=== PATIENT | female | born 2000 | race Caucasian/White ===

== ENCOUNTER 2024-08-28 19:20 | Emergency (ER) | payer OTHER, SELFPAY ==
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
[2024-08-28] MEDS: TYLENOL 650 MG PO (21:15)
[2024-08-28] MEDS: PERCOCET 5/325 1 TABLET PO (22:22)
[2024-08-28 22:36] LABS: HCG, Serum Qualitative Screen Negative
[2024-08-28 22:42] LABS: Blood Urea Nitrogen 8 mg/dl (7-17); Calcium 8.9 mg/dl (8.4-10.2); Carbon Dioxide 24 mmol/L (22-30); Chloride 104 mmol/L (98-107); Glucose 94 mg/dl (70-99); Sodium 140 mmol/L (135-145); eGFR > 60.00
[2024-08-28 22:52] LABS: % Basophils 1.1 % (0-2); % Eosinophils 33.9 % (0-6); % Immature Granulocytes 0.1 % (0-0.5); % Lymphocytes 33.2 % (20.5-51.1); % Monocytes 5.9 % (1.7-9.3); % Neutrophils 24.5 % (42.2-75.2); Absolute Basophils 0.1 10^3/uL (0-0.2); Absolute Eosinophils 2.8 10^3/uL (0-0.7); Absolute Lymphocytes 2.7 10^3/uL (1.2-3.4); Absolute Monocytes 0.5 10^3/uL (0.1-0.6); Hematocrit 33.5 % (37.0-47.0); Hemoglobin 12.2 g/dL (12.0-16.0); Mean Corp Hgb Conc. 36.2 g/dL (33.0-37.0); Mean Corpuscular Hgb 28.2 pg (27.0-31.0); Mean Corpuscular Volume 77.9 fL (81.0-99.0); Nucleated Red Blood Cells % 0 %; Platelet Count 28 10^3/uL (130-400); Red Blood Cell Count 4.29 10^6/uL (4.20-5.40); Red Cell Dist. Width 12.9 % (11.5-14.5)
[2024-08-28 23:51] LABS: Hematocrit 31.9 % (37.0-47.0); Hemoglobin 11.6 g/dL (12.0-16.0); Mean Corp Hgb Conc. 36.4 g/dL (33.0-37.0); Mean Corpuscular Hgb 28.4 pg (27.0-31.0); Mean Corpuscular Volume 78.2 fL (81.0-99.0); Mean Platelet Volume 9.2 fL (7.4-10.4); Platelet Count 243 10^3/uL (130-400); Red Blood Cell Count 4.08 10^6/uL (4.20-5.40); Red Cell Dist. Width 13.1 % (11.5-14.5); White Blood Cell Count 9.6 10^3/uL (4.8-10.8)
[2024-08-29 00:11] LABS: % Basophils 0.8 % (0-2); % Eosinophils 37.4 % (0-6); % Immature Granulocytes 0.2 % (0-0.5); % Lymphocytes 28.6 % (20.5-51.1); % Monocytes 6.5 % (1.7-9.3); % Neutrophils 26.5 % (42.2-75.2); Absolute Basophils 0.1 10^3/uL (0-0.2); Absolute Eosinophils 3.6 10^3/uL (0-0.7); Absolute Lymphocytes 2.7 10^3/uL (1.2-3.4); Absolute Monocytes 0.6 10^3/uL (0.1-0.6); Absolute Neutrophils 2.5 10^3/uL (1.4-6.5); Nucleated Red Blood Cells % 0 %
== END 2024-08-29 00:19 | disposition home or self-care (01) ==
LOC: EMR 19:20
PROVIDERS: Physician Assistant; EMERGENCY PHYSICIAN Emergency Medicine; FAMILY PHYSICIAN Internal Medicine
DX: S00.81XA Abrasion of other part of head, initial encounter (principal); S40.022A Contusion of left upper arm, initial encounter; S40.021A Contusion of right upper arm, initial encounter; S80.12XA Contusion of left lower leg, initial encounter; S80.11XA Contusion of right lower leg, initial encounter; V49.50XA Passenger injured in collision with unspecified motor vehicles in traffic accident, initial encounter; J45.909 Unspecified asthma, uncomplicated; F17.290 Nicotine dependence, other tobacco product, uncomplicated
CPT/HCPCS: 99284; 70450; 71046; 72125; 74177; 80048; 84703; 85025; Q9967

== ENCOUNTER 2024-10-03 08:39 | Emergency (ER) | payer OTHER, SELFPAY ==
--- NOTE | 2024-10-03 08:56 | ED.GENMED ---
ED Provider Triage
<Denisse Torres PA-C - Last Filed: 10/03/24 16:33>
-
Patient seen by provider in Triage?: Seen in Triage
Attestation: A medical screening examination has been initiated by a qualified medical provider. Based on the assessment performed at this time, it has been determined that an emergent medical condition may exist and the patient has been informed
that further medical evaluation and possible additional diagnostic testing may be needed.
HPI: 24yoF here with vomiting x 2 days. Unable to tolerate PO intake. Started with generalized abd pain yesterday and diarrhea today. On medical marijuana.
GENERAL: Alert , in no apparent distress
EYE: No visual abnormalities.
NECK: Trachea midline
ENT: No visible abnormalities.
LUNGS: No acute respiratory distress
NEUROLOGICAL: Alert and oriented
SKIN: Skin intact. No visible changes.
MUSCULOSKELETAL: Moving extremities normally
PSYCH: Normal and appropriate interaction.
This is a medical evaluation conducted in person to initiate diagnostic evaluation and provide initial therapeutics. Please see further documentation by the treating clinician.
Abdominal labs, magnesium, and HCG ordered. ODT Zofran ordered for nausea.
History of Present Illness
<Denisse Torres PA-C - Last Filed: 10/03/24 16:33>
General
Chief Complaint: Abdominal Symptoms
Time Seen by Provider: 10/03/24 10:32
<Tish Langley PA-C - Last Filed: 10/03/24 17:38>
General
Source: patient
Exam Limitations: none
Nursing documentation reviewed up to this point in time: agreed with
History of Present Illness
History of Present Illness:
24-year-old female with past medical history of daily marijuana use, anxiety, depression presents to the emergency department today with concerns of diffuse abdominal pain starting today and nausea and vomiting for the past few days. Patient also
notes 1 diarrhea episode as well. Patient reports that the pain is constant and does not get worse after meals or with movement. Patient has never had pain like this before. Patient denies any history of intra-abdominal surgeries. Patient states
that she also has burning with urination but denies pelvic pain. She denies hematuria. She denies flank pain. She states that the belly pain radiates into her chest as well. Patient denies NSAID use. Patient states that she takes Valium 5 mg
daily for her anxiety. Patient states that she not take it this morning because of the vomiting. Patient believes that this will improve her symptoms.
Past History
<Denisse oTrres PA-C - Last Filed: 10/03/24 16:33>
Past History
ED Past Medical History: Asthma (Uses Asthmanex) and Psychiatric (Anxiety Takes Remeron, Abilify, Valium, Gabapentin. Followed by her Psychiatrist.)
ED Past Surgical History: None
Social History
Tobacco: Vaping
Alcohol: None
Drug: Marijuana
Personal:
Living: with family
Employment: Not employed
Review of Systems
<Tish Langley PA-C - Last Filed: 10/03/24 17:38>
Review of Systems
All Other Systems: ROS reviewed and negative except as documented in HPI and ROS
Phy Exam
<Tish Langley PA-C - Last Filed: 10/03/24 17:38>
Physical Exam
Physical Exam:
General: Patient is well appearing and in no acute distress; non-toxic
Skin: Warm and dry, no rashes or lesions
Head: Normocephalic, atraumatic
Eyes: Sclera non-icteric. EOMs intact. PERRLA.
Cardiac: Regular rate and rhythm, no murmurs
Peripheral Vascular: No lower extremity swelling or edema
Pulm: Normal respiratory effort, no wheezes, rales, or rhonchi
Abdomen: Epigastric abdominal tenderness to palpation noted
Neuro: CN II-XII intact, no focal neurologic deficits.
Psychiatric: Appropriate mood and affect.
Course
<Denisse Torres PA-C - Last Filed: 10/03/24 16:33>
Orders/Labs/Results
Orders:
Orders
10/03/24 08:59
Ondansetron Orally Disint [Zofran Odt (Orally Disintegrating)] 4 mg PO NOW STA
Test Result ONCE
10/03/24 09:01
Electrocardiogram (*1) Urgent
Reason for Study: Shortness of Breath
EKG- Treatment ONCE
10/03/24 09:10
Complete Blood Count/With Diff Urgent
Comprehensive Metabolic Panel Urgent
HCG, Serum Qualitative Screen Urgent
Lipase Urgent
Magnesium Urgent
10/03/24 10:59
0.9% Sodium Chloride 500 ml [Nss] 500 ml IV BOLUS
Diazepam [Valium] 5 mg PO NOW STA
10/03/24 11:07
Ketorolac [Toradol] 15 mg IV NOW STA
10/03/24 11:47
diazePAM [Valium Injection] 5 mg IV NOW STA
10/03/24 12:04
Haloperidol Lactate [Haldol] 3 mg IM NOW STA
10/03/24 12:36
Urinalysis Reflex To Culture Urgent
Date Specimen was Collected: 10/03/24
Time Specimen was Collected: 12:33
Urine Microscopic Reflex Cult Urgent
Urine Culture Urgent
ALEKSANDRA Source: U
Specimen Description:
Obtained by: Random
Date Specimen was Collected: 10/03/24
Time Specimen was Collected: 12:33
Abnormal Lab Results
10/03/24 10/03/24
09:10 12:36
Glucose 104 H mg/dl
(70-99)
Urine Ketones 3+ A
(Negative)
Urine Nitrite (Reflex) Positive A
(Negative)
Leukocyte Esterase Rfl 2+ A
(Negative)
Urine WBC (Reflex) 26-30 A /HPF
(0-5)
Urine Bacteria (Reflex) Many A
(Negative)
10/03/24 09:10
10/03/24 09:10
Vital Signs
Initial and Last Documented VS:
Initial Vital Signs
Temp Pulse Resp BP Pulse Ox
98.4 F 57 16 135/95 99
10/03/24 08:57 10/03/24 08:57 10/03/24 08:57 10/03/24 08:57 10/03/24 08:57
Last Documented Vital Signs
Temp Pulse Resp BP Pulse Ox
98.4 F 60 18 120/75 99
10/03/24 08:57 10/03/24 14:05 10/03/24 14:05 10/03/24 14:05 10/03/24 14:05
Joselt;Tish Langley PA-C - Last Filed: 10/03/24 17:38>
Orders/Labs/Results
Orders:
Orders
10/03/24 08:59
Ondansetron Orally Disint [Zofran Odt (Orally Disintegrating)] 4 mg PO NOW STA
Test Result ONCE
10/03/24 09:01
Electrocardiogram (*1) Urgent
Reason for Study: Shortness of Breath
EKG- Treatment ONCE
10/03/24 09:10
Complete Blood Count/With Diff Urgent
Comprehensive Metabolic Panel Urgent
HCG, Serum Qualitative Screen Urgent
Lipase Urgent
Magnesium Urgent
10/03/24 10:59
0.9% Sodium Chloride 500 ml [Nss] 500 ml IV BOLUS
Diazepam [Valium] 5 mg PO NOW STA
10/03/24 11:07
Ketorolac [Toradol] 15 mg IV NOW STA
10/03/24 11:47
diazePAM [Valium Injection] 5 mg IV NOW STA
10/03/24 12:04
Haloperidol Lactate [Haldol] 3 mg IM NOW STA
10/03/24 12:36
Urinalysis Reflex To Culture Urgent
Date Specimen was Collected: 10/03/24
Time Specimen was Collected: 12:33
Urine Microscopic Reflex Cult Urgent
Urine Culture Urgent
ALEKSANDRA Source: U
Specimen Description:
Obtained by: Random
Date Specimen was Collected: 10/03/24
Time Specimen was Collected: 12:33
Abnormal Lab Results
10/03/24 10/03/24
09:10 12:36
Glucose 104 H mg/dl
(70-99)
Urine Ketones 3+ A
(Negative)
Urine Nitrite (Reflex) Positive A
(Negative)
Leukocyte Esterase Rfl 2+ A
(Negative)
Urine WBC (Reflex) 26-30 A /HPF
(0-5)
Urine Bacteria (Reflex) Many A
(Negative)
10/03/24 09:10
10/03/24 09:10
Vital Signs
Initial and Last Documented VS:
Initial Vital Signs
Temp Pulse Resp BP Pulse Ox
98.4 F 57 16 135/95 99
10/03/24 08:57 10/03/24 08:57 10/03/24 08:57 10/03/24 08:57 10/03/24 08:57
Last Documented Vital Signs
Temp Pulse Resp BP Pulse Ox
98.4 F 60 18 120/75 99
10/03/24 08:57 10/03/24 14:05 10/03/24 14:05 10/03/24 14:05 10/03/24 14:05
<Rubens Perez, DO - Last Filed: 10/03/24 12:02>
Orders/Labs/Results
Orders:
Orders
10/03/24 08:59
Ondansetron Orally Disint [Zofran Odt (Orally Disintegrating)] 4 mg PO NOW STA
Test Result ONCE
10/03/24 09:01
Electrocardiogram (*1) Urgent
Reason for Study: Shortness of Breath
EKG- Treatment ONCE
10/03/24 09:10
Complete Blood Count/With Diff Urgent
Comprehensive Metabolic Panel Urgent
HCG, Serum Qualitative Screen Urgent
Lipase Urgent
Magnesium Urgent
10/03/24 10:59
0.9% Sodium Chloride 500 ml [Nss] 500 ml IV BOLUS
Diazepam [Valium] 5 mg PO NOW STA
10/03/24 11:07
Ketorolac [Toradol] 15 mg IV NOW STA
10/03/24 11:47
diazePAM [Valium Injection] 5 mg IV NOW STA
10/03/24 12:04
Haloperidol Lactate [Haldol] 3 mg IM NOW STA
10/03/24 12:36
Urinalysis Reflex To Culture Urgent
Date Specimen was Collected: 10/03/24
Time Specimen was Collected: 12:33
Urine Microscopic Reflex Cult Urgent
Urine Culture Urgent
ALEKSANDRA Source: U
Specimen Description:
Obtained by: Random
Date Specimen was Collected: 10/03/24
Time Specimen was Collected: 12:33
Abnormal Lab Results
10/03/24 10/03/24
09:10 12:36
Glucose 104 H mg/dl
(70-99)
Urine Ketones 3+ A
(Negative)
Urine Nitrite (Reflex) Positive A
(Negative)
Leukocyte Esterase Rfl 2+ A
(Negative)
Urine WBC (Reflex) 26-30 A /HPF
(0-5)
Urine Bacteria (Reflex) Many A
(Negative)
10/03/24 09:10
10/03/24 09:10
Vital Signs
Initial and Last Documented VS:
Initial Vital Signs
Temp Pulse Resp BP Pulse Ox
98.4 F 57 16 135/95 99
10/03/24 08:57 10/03/24 08:57 10/03/24 08:57 10/03/24 08:57 10/03/24 08:57
Last Documented Vital Signs
Temp Pulse Resp BP Pulse Ox
98.4 F 60 18 120/75 99
10/03/24 08:57 10/03/24 14:05 10/03/24 14:05 10/03/24 14:05 10/03/24 14:05
<Tish Langley PA-C - Last Filed: 10/03/24 17:38>
MDM/Problems Addressed
Differential Diagnosis Includes:
ddx include cannabinoid hyperemesis syndrome, gastritis, gastroenteritis, benzodiazepine withdrawal
MDM/Problems Addressed:
Assessment: cannabinoid hyperemesis syndrome vs gastritis with concurrent UTI
24-year-old female with past medical history of daily marijuana use, anxiety, depression presents to the emergency department today with concerns of diffuse abdominal pain starting today and nausea and vomiting for the past few days. Patient also
notes 1 diarrhea episode as well. She has had no recent antibiotics. On exam, patient is dry heaving but is afebrile has mild non focalabdominal tenderness to palpation. Considering patient has a soft abdomen, has no leukocytosis, no fever, CT
imaging not warranted at this time. Patient's pain did significantly improved with Toradol, upon discharge patient was pain free and feeling well. Patient's nausea and vomiting resolved with zofran, Haldol. Patient did note mild dysuria, urinalysis
demonstrates nitrates and leukocyte esterase as well as bacteria and wbcs. Will treat with keflex.
Patient also noted that the abdominal pain briefly traveled into the chest. EKG obtained which shows no ischemic changes but did show bradycardia rate 48, on reexamination and monitoring patient's heart rate normalized. Return precautions
discussed. Case reviewed with my attending.
Chronic conditions affecting care:
asthma, ADHD, anxiety on valium
<Tish Langley PA-C - Last Filed: 10/03/24 17:38>
*Pulse Oximetry
Patient hypoxic: no
*EKG
Interpreted by ED Provider?: Yes
EKG Intrepretation Date: 10/03/24
Interpretation: abnormal
Comparison EKG: changes noted
Heart Rate: 48
Rate: bradycardiac
Rhythm: sinus
Ischemia: no ischemia
*Critical Care Note
Total Time (30-74mins, 75-104mins- exclusive of procedures): Not Applicable
<Tish Langley PA-C - Last Filed: 10/03/24 17:38>
Update Note
Update Note:
11:48 am-- Patient vomited immediately after taking PO valium, will give IV
ED Attending Note
<Denisse Torres PA-C - Last Filed: 10/03/24 16:33>
-
Portions of this chart may have been created with voice recognition software.� Occasional wrong word or��sound alike� substitutions may have occurred due to the inherent limitations of voice recognition software.
<Rubens Perez DO - Last Filed: 10/03/24 12:02>
ED Attending Note
Patient seen and examined by attending physician: Yes
I performed the substantive portion of visit, reviewed & personally made and approve the management plan that is documented in note by myself or ROMEL.: Yes
ED Attending Note:
Seen with PA examined independently 24-year-old female chronic Valium use due to anxiety chronic marijuana use presents with abdominal cramping nausea vomiting little to diarrhea, here she appears anxious and uncomfortable her abdomen is soft
without guarding or rebound labs are noted will treat symptomatically, serial abdominal exams
Discharge Plan
Departure
Patient Disposition: Home (Routine Discharge)
Date of Disposition: 10/03/24
Time of Disposition: 13:57
Patient with high blood pressure during this ER visit?: Yes
Condition: Good
Discharge Problem:
Nausea & vomiting, Urinary tract infection
Instructions: Nausea and Vomiting, Adult (DC), Urinary Tract Infection, Adult ED
Prescriptions:
New
cephalexin 500 mg capsule
500 mg PO BID 7 Days Qty: 14 0RF
ondansetron HCl 4 mg tablet
4 mg PO Q6H PRN (Reason: nausea and vomiting) Qty: 8 0RF
No Action
albuterol sulfate 2.5 MG/3 ML solution for nebulization
2.5 mg inhalation R Q4HPRN PRN (Reason: sob/wheezing)
sertraline 100 MG tablet
100 mg PO DAILY
levonorgestrel-ethinyl estrad [Altavera (28)] 1 EACH tablet
1 ea PO DAILY@1800
gabapentin 300 MG capsule
300 mg PO BID
fluticasone propionate 1 SPRAY spray,suspension
1 spray intranasal DAILY
prednisone 10 MG tablet
10 mg PO .TAPER Qty: 30 0RF
Rx Instructions:
Take 40mg daily x3days, 30mg daily x3days,
20mg daily x3days, 10mg daily x3days.
ondansetron 4 MG tablet,disintegrating
4 mg PO TIDPRN PRN (Reason: nausea) Qty: 10 0RF
gabapentin 400 MG capsule
400 mg PO TID Qty: 90 6RF
ondansetron 4 MG tablet,disintegrating
4 mg PO TIDPRN PRN (Reason: nausea/vomiting) Qty: 10 0RF
prednisone 50 MG tablet
50 mg PO DAILY Qty: 5 0RF
ondansetron 4 MG tablet,disintegrating
4 mg PO TIDPRN PRN (Reason: nausea/vomiting) Qty: 6 0RF
ondansetron 4 mg tablet,disintegrating
4 mg PO Q6H PRN (Reason: nausea and vomiting) Qty: 20 0RF
Referrals:
UNKNOWN - PT DOES,NOT KNOW [Family Provider] -
Interventions
Interventions:
*Risk Screen - Suicide Last Done: 10/03/24 08:57
*General Assessment Last Done: 10/03/24 08:57
*Neglect/Abuse Screening Last Done: 10/03/24 08:57
ED- Fall Risk Assessment Last Done: 10/03/24 11:24
*ED COVID-19 Vaccine History Last Done: 10/03/24 10:55
*Nursing Disposition Last Done: 10/03/24 14:05
QM-Jjyryf-Klqqaqnhxt Assessment Last Done: 10/03/24 11:24
Discharge Date and Time
Discharge Date/Time: 10/03/24 14:06
Print Language: [place]
[2024-10-03 08:57] VITALS: BP 135/95
[2024-10-03] MEDS: ZOFRAN ODT (ORALLY DISINTEGRATING) 4 MG PO (09:15)
[2024-10-03 09:32] LABS: % Basophils 0.6 % (0-2); % Eosinophils 4.2 % (0-6); % Immature Granulocytes 0.3 % (0-0.5); % Lymphocytes 22.5 % (20.5-51.1); % Monocytes 4.8 % (1.7-9.3); % Neutrophils 67.6 % (42.2-75.2); Absolute Basophils 0.1 10^3/uL (0-0.2); Absolute Eosinophils 0.4 10^3/uL (0-0.7); Absolute Monocytes 0.4 10^3/uL (0.1-0.6); Absolute Neutrophils 5.9 10^3/uL (1.4-6.5); Hematocrit 41.5 % (37.0-47.0); Hemoglobin 14.7 g/dL (12.0-16.0); Mean Corp Hgb Conc. 35.4 g/dL (33.0-37.0); Mean Corpuscular Hgb 28.7 pg (27.0-31.0); Mean Corpuscular Volume 81.1 fL (81.0-99.0); Mean Platelet Volume 9.8 fL (7.4-10.4); Nucleated Red Blood Cells % 0 %; Platelet Count 279 10^3/uL (130-400); Red Blood Cell Count 5.12 10^6/uL (4.20-5.40); Red Cell Dist. Width 12.4 % (11.5-14.5); White Blood Cell Count 8.8 10^3/uL (4.8-10.8)
[2024-10-03 09:41] LABS: HCG, Serum Qualitative Screen Negative
[2024-10-03 09:44] LABS: ALT (SGPT) 20 U/L (0-35); AST (SGOT) 25 U/L (14-36); Albumin 4.9 g/dl (3.5-5.0); Alkaline Phosphatase 53 U/L (38-126); Blood Urea Nitrogen 14 mg/dl (7-17); Calcium 9.4 mg/dl (8.4-10.2); Carbon Dioxide 22 mmol/L (22-30); Chloride 103 mmol/L (98-107); Glucose 104 mg/dl (70-99); Lipase 58 U/L (23-300); Potassium 3.8 mmol/L (3.5-5.1); Sodium 141 mmol/L (135-145); Total Bilirubin 0.7 mg/dl (0.2-1.3); Total Protein 7.9 g/dl (6.3-8.2); eGFR > 60.00
[2024-10-03 10:43] VITALS: BP 117/78
[2024-10-03 10:44] VITALS: BMI 25.0
[2024-10-03 10:46] VITALS: BP 117/78
[2024-10-03] MEDS: TORADOL 15 MG IV (11:10)
[2024-10-03] MEDS: VALIUM 5 MG PO (11:10)
[2024-10-03] MEDS: NSS 500 IV (11:17)
[2024-10-03] MEDS: HALDOL 3 MG IM (12:18)
[2024-10-03 12:29] VITALS: BP 121/76
[2024-10-03 13:15] LABS: Urine Albumin Trace (Neg - Trace); Urine Bilirubin Negative (Negative); Urine Character Slightly Cloudy (Clear); Urine Color Amber; Urine Glucose Negative (Negative); Urine Ketone 3+ (Negative); Urine Leukocyte 2+ (Negative); Urine Nitrite Positive (Negative); Urine Occult Blood Negative (Negative); Urine Urobilinogen Negative (Neg - 1+)
[2024-10-03 14:04] LABS: Urine Mucus Many; Urine Squamous Cell >30 /LPF (Few)
[2024-10-03 14:05] VITALS: BP 120/75
[2024-10-03 14:06] LABS: Urine Red Blood Cell 0-2 /HPF (0-2)
[2024-10-03 14:07] LABS: Urine Bacteria Many (Negative); Urine White Cell 26-30 /HPF (0-5)
== END 2024-10-03 14:06 | disposition home or self-care (01) ==
LOC: EMR 08:39
PROVIDERS: Physician Assistant; EMERGENCY PHYSICIAN Emergency Medicine
DX: R11.2 Nausea with vomiting, unspecified (principal); N39.0 Urinary tract infection, site not specified; J45.909 Unspecified asthma, uncomplicated; F41.9 Anxiety disorder, unspecified; F17.290 Nicotine dependence, other tobacco product, uncomplicated; Z79.899 Other long term (current) drug therapy
CPT/HCPCS: 96374; 96372; 96361; 99284; 80053; 81003; 81015; 83690; 83735; 84703; 85025; 87077; 87086; 93005

== ENCOUNTER 2024-12-16 20:36 | Emergency (ER) | payer OTHER, SELFPAY ==
[2024-12-16 20:42] VITALS: BP 107/69
[2024-12-16 21:12] VITALS: BMI 24.6
[2024-12-16 22:30] LABS: Glucose - Point of Care 69 mg/dl (70-99)
[2024-12-16 22:34] LABS: % Basophils 0.5 % (0-2); % Eosinophils 26.8 % (0-6); % Immature Granulocytes 0.2 % (0-0.5); % Lymphocytes 34.4 % (20.5-51.1); % Monocytes 7.9 % (1.7-9.3); % Neutrophils 30.2 % (42.2-75.2); Absolute Eosinophils 1.6 10^3/uL (0-0.7); Absolute Lymphocytes 2.1 10^3/uL (1.2-3.4); Absolute Monocytes 0.5 10^3/uL (0.1-0.6); Absolute Neutrophils 1.8 10^3/uL (1.4-6.5); Hematocrit 36.7 % (37.0-47.0); Hemoglobin 12.6 g/dL (12.0-16.0); Mean Corp Hgb Conc. 34.3 g/dL (33.0-37.0); Mean Corpuscular Hgb 28.4 pg (27.0-31.0); Mean Corpuscular Volume 82.7 fL (81.0-99.0); Mean Platelet Volume 9.8 fL (7.4-10.4); Nucleated Red Blood Cells % 0 %; Platelet Count 210 10^3/uL (130-400); Red Blood Cell Count 4.44 10^6/uL (4.20-5.40); Red Cell Dist. Width 12.3 % (11.5-14.5)
--- NOTE | 2024-12-16 22:39 | ED.GENMED ---
History of Present Illness
General
Chief Complaint: Crisis Evaluation
Source: patient and significant other
Exam Limitations: clinical condition
Time Seen by Provider: 12/16/24 22:07
Nursing documentation reviewed up to this point in time: agreed with
History of Present Illness
History of Present Illness:
24-year-old female presents to the emergency department earlier in the evening visibly distressed. According to her significant other, she seems to be 'psychotic '. patient is well-known to [facility] under a different last name. Upon arrival, she
denied suicidal ideation. When I saw the patient approximately 2-1/2 hours after her arrival she admitted that she overdosed on gabapentin. She admitted to taking between 10 and 15 of her gabapentin pills. She states that she does not consider
this and overdose 'because she was prescribed them '. History is extremely limited as patient is still not forthcoming.
Vital signs are stable. Patient not hypoxic
Nursing note reviewed. I agree with nursing documentation up to this point in time.
Home Meds and allergies reviewed.
NUMBER AND COMPLEXITY OF PROBLEMS ADDRESSED AT THE ENCOUNTER
� Chronic conditions affecting care: Frequent overdoses, psychiatric problems
� Acute Exacerbation and/or Progression of Chronic Illness:
� Differential Diagnosis includes: Gabapentin overdose
AMOUNT AND/OR COMPLEXITY OF DATA TO BE REVIEWED AND ANALYZED
I performed an independent evaluation of the following and my interpretation is:
EKG:
Pulse Ox: Not Hypoxic
Dietary Service Aide: Sinus Rhythm
CT:
X-rays:
Ultrasound:
Laboratory Studies:
Other:
Review of other/old records:
Clinical information was obtained by an independent historian:
Prescriptions/Medications Considered but not given:
Further testing considered but not performed:
RISK OF COMPLICATIONS AND/OR MORBIDITY OR MORTALITY OF PATIENT MANAGEMENT
Social determinants of health affecting care: Good Social Support
Discussion with other providers:
Escalation of care including admission/observation vs risk of discharge considered: After being observed in the emergency department, patient is
CRITICAL CARE NOTE:
Total Time (exclusive of procedures):
Update:
Past History
Past History
ED Past Medical History: Asthma (Uses Asthmanex) and Psychiatric (Anxiety Takes Remeron, Abilify, Valium, Gabapentin. Followed by her Psychiatrist.)
ED Past Surgical History: None
Social History
Tobacco: Vaping
Alcohol: None
Drug: Marijuana
Personal:
Living: with family
Employment: Not employed
Phy Exam
Physical Exam
Physical Exam:
.
General Physical Exam
General age: appears older than age
General Skin: warm and dry
General Habitus: poor hygiene
General Mental: angry, anxious and confused
Pulmonary Exam
Pulmonary Exam: lungs clear and no respiratory distress
Neurological Exam
Neurological Exam: alert and oriented x3
Musculoskeletal Exam
Musculoskeletal Exam: neuro vasc intact
Skin Exam
Skin Exam: normal color, warm/dry and other (Multiple tattoos)
Psychiatric Exam
Psychiatric Exam: normal mood/affect
Course
Orders/Labs/Results
Orders:
Orders
12/16/24 21:23
Crisis Consult Urgent
Reason for Consult: per patient is in need of crisis
12/16/24 22:07
Electrocardiogram (*1) Stat
Reason for Study: Other
Other Reason for Exam: overdose
Bedside Glucose- Treatment ONCE
EKG- Treatment ONCE
Urinalysis Reflex To Culture Urgent
Date Specimen was Collected: 12/17/24
Time Specimen was Collected: 02:12
Urine Drug Abuse Screen Urgent
Date Specimen was Collected: 12/17/24
Time Specimen was Collected: 02:12
Test Result ONCE
12/16/24 22:22
Acetaminophen Urgent
Alcohol Urgent
Complete Blood Count/With Diff Urgent
Comprehensive Metabolic Panel Urgent
HCG, Serum Qualitative Screen Urgent
PTT Urgent
Prothrombin Time Urgent
Salicylate Urgent
12/17/24 02:20
Fentanyl, Urine Urgent
Urine Microscopic Reflex Cult Urgent
Urine Culture Urgent
ALEKSANDRA Source: U
Specimen Description:
Date Specimen was Collected: 12/17/24
Time Specimen was Collected: 02:12
12/17/24 02:29
Benzonatate [Tessalon Perles] 100 mg PO NOW STA
12/17/24 02:53
Nicotine [Nicoderm Transdermal] 21 mg .ROUTE .STK-MED ONE
12/17/24 08:00
Nicotine [Nicoderm Transdermal] 21 mg TRANSDERM DAILY
Abnormal Lab Results
12/16/24 12/16/24 12/17/24
22:22 22:28 02:20
Hct 36.7 L %
(37.0-47.0)
Absolute Eos (auto) 1.6 H 10^3/uL
(0-0.7)
Neutrophils % 30.2 L %
(42.2-75.2)
Eosinophils % 26.8 H %
(0-6)
AST 41 H U/L
(14-36)
Ur Occult Blood Reflex 3+ A
(Negative)
Urine RBC 3-6 A /HPF
(0-2)
Urine Bacteria (Reflex) Many A
(Negative)
Salicylates < 1.0 L mg/dl
(2.0-20.0)
Urine Opiates Screen Positive H
(Negative)
Urine Methadone Screen Positive H
(Negative)
Urine Fentanyl Screen Positive H
(Negative)
Acetaminophen < 10 L ug/ml
(10-30)
U Benzodiazepines Scrn Positive H
(Negative)
Urine Cocaine Screen Positive H
(Negative)
U Marijuana (THC) Screen Positive H
(Negative)
POC Glucose 69 L mg/dl
(70-99)
12/16/24 22:22
12/16/24 22:22
Vital Signs
Initial and Last Documented VS:
Initial Vital Signs
Temp Pulse Resp BP Pulse Ox
98.8 F 86 18 107/69 98
12/16/24 20:42 12/16/24 20:42 12/16/24 20:42 12/16/24 20:42 12/16/24 20:42
Last Documented Vital Signs
Temp Pulse Resp BP Pulse Ox
98.8 F 68 20 136/84 97
12/16/24 20:42 12/17/24 01:17 12/17/24 01:17 12/17/24 01:17 12/17/24 01:17
*Critical Care Note
Total Time (30-74mins, 75-104mins- exclusive of procedures): Not Applicable
Update Note
Update Note:
Patient medically cleared for psychiatric treatment. She is willing to voluntarily sign herself into a inpatient psychiatric treatment facility.
ED Attending Note
-
Portions of this chart may have been created with voice recognition software.� Occasional wrong word or��sound alike� substitutions may have occurred due to the inherent limitations of voice recognition software.
Discharge Plan
Departure
Patient Disposition: Psych Facility
Date of Disposition: 12/17/24
Time of Disposition: 02:18
Patient Status:: 201
Discharge Problem:
Overdose, Suicide attempt
Prescriptions:
No Action
albuterol sulfate 2.5 MG/3 ML solution for nebulization
2.5 mg inhalation R Q4HPRN PRN (Reason: sob/wheezing)
sertraline 100 MG tablet
100 mg PO DAILY
levonorgestrel-ethinyl estrad [Altavera (28)] 1 EACH tablet
1 ea PO DAILY@1800
gabapentin 300 MG capsule
300 mg PO BID
fluticasone propionate 1 SPRAY spray,suspension
1 spray intranasal DAILY
prednisone 10 MG tablet
10 mg PO .TAPER Qty: 30 0RF
Rx Instructions:
Take 40mg daily x3days, 30mg daily x3days,
20mg daily x3days, 10mg daily x3days.
ondansetron 4 MG tablet,disintegrating
4 mg PO TIDPRN PRN (Reason: nausea) Qty: 10 0RF
gabapentin 400 MG capsule
400 mg PO TID Qty: 90 6RF
ondansetron 4 MG tablet,disintegrating
4 mg PO TIDPRN PRN (Reason: nausea/vomiting) Qty: 10 0RF
prednisone 50 MG tablet
50 mg PO DAILY Qty: 5 0RF
ondansetron 4 MG tablet,disintegrating
4 mg PO TIDPRN PRN (Reason: nausea/vomiting) Qty: 6 0RF
ondansetron 4 mg tablet,disintegrating
4 mg PO Q6H PRN (Reason: nausea and vomiting) Qty: 20 0RF
cephalexin 500 mg capsule
500 mg PO BID 7 Days Qty: 14 0RF
ondansetron HCl 4 mg tablet
4 mg PO Q6H PRN (Reason: nausea and vomiting) Qty: 8 0RF
Referrals:
Nuzhat Peralta [Other]
Interventions
Interventions:
*Risk Screen - Suicide Last Done: 12/16/24 20:42
*General Assessment Last Done: 12/16/24 20:42
*Neglect/Abuse Screening Last Done: 12/16/24 20:42
ED- Fall Risk Assessment Last Done: 12/16/24 21:16
*ED COVID-19 Vaccine History Last Done: 12/16/24 21:12
ED-Psychological Assessment Last Done: 12/16/24 22:34
Discharge Date and Time
Print Language: [place]
[2024-12-16 22:44] LABS: INR 1.01; PT 13.6 Sec (11.4-14.6)
[2024-12-16 22:51] LABS: HCG, Serum Qualitative Screen Negative
[2024-12-16 22:55] LABS: ALT (SGPT) 29 U/L (0-35); AST (SGOT) 41 U/L (14-36); Acetaminophen < 10 ug/ml (10-30); Albumin 4.5 g/dl (3.5-5.0); Alkaline Phosphatase 47 U/L (38-126); Blood Urea Nitrogen 10 mg/dl (7-17); Carbon Dioxide 25 mmol/L (22-30); Chloride 103 mmol/L (98-107); Estimated Creatinine Clearance 80 ml/min; Glucose 72 mg/dl (70-99); Potassium 4.2 mmol/L (3.5-5.1); Salicylate < 1.0 mg/dl (2.0-20.0); Sodium 138 mmol/L (135-145); Total Bilirubin 0.4 mg/dl (0.2-1.3); Total Protein 7.3 g/dl (6.3-8.2); eGFR > 60.00
[2024-12-16 22:57] LABS: Alcohol None Detected
[2024-12-16 23:11] VITALS: BP 93/53
[2024-12-17 01:17] VITALS: BP 136/84
[2024-12-17 02:41] LABS: Urine Albumin Negative (Neg - Trace); Urine Bilirubin Negative (Negative); Urine Character Slightly Cloudy (Clear); Urine Color Yellow; Urine Glucose Negative (Negative); Urine Ketone Negative (Negative); Urine Leukocyte Negative (Negative); Urine Nitrite Negative (Negative); Urine Occult Blood 3+ (Negative); Urine Specific Gravity 1.015 (<1.030); Urine Urobilinogen Negative (Neg - 1+)
[2024-12-17 02:57] LABS: Amphetamines Negative (Negative); Barbiturates Negative (Negative); Benzodiazepines Positive (Negative); Buprenorphine Negative (Negative); Cocaine Positive (Negative); Marijuana Positive (Negative); Methadone Positive (Negative); Methamphetamines Negative (Negative); Opiates Positive (Negative); Phencyclidine Negative (Negative); Tricyclic Antidepressants Negative (Negative)
[2024-12-17] MEDS: NICODERM TRANSDERMAL 21 MG TRANSDERM (03:00)
[2024-12-17 03:27] LABS: Fentanyl, Urine Positive (Negative)
[2024-12-17 03:28] LABS: Urine Bacteria Many (Negative); Urine Mucus Many; Urine Squamous Cell >30 /LPF (Few)
[2024-12-17 08:05] VITALS: BP 124/77
[2024-12-17] MEDS: VALIUM 5 MG PO (08:24)
[2024-12-17] MEDS: NEURONTIN 300 MG PO (08:24)
== END 2024-12-17 13:00 ==
LOC: EMR 20:36
PROVIDERS: CONSULT PHYSICIAN Psychiatry & Neurology Psychiatry; EMERGENCY PHYSICIAN Student in an Organized Health Care Education/Training Program
DX: T14.91XA Suicide attempt, initial encounter (principal); T42.6X2A Poisoning by other antiepileptic and sedative-hypnotic drugs, intentional self-harm, initial encounter; R41.0 Disorientation, unspecified; F41.9 Anxiety disorder, unspecified; J45.909 Unspecified asthma, uncomplicated; F90.9 Attention-deficit hyperactivity disorder, unspecified type; F32.A Depression, unspecified; F60.3 Borderline personality disorder; F17.290 Nicotine dependence, other tobacco product, uncomplicated; Z91.52 Personal history of nonsuicidal self-harm
CPT/HCPCS: 99285; 80053; 80143; 80179; 80306; 80307; 81003; 81015; 82077; 82962; 84703; 85025; 85610; 85730; 87086; 93005

== ENCOUNTER 2025-01-23 15:28 | Emergency (ER) | payer OTHER, SELFPAY ==
[2025-01-23 15:31] VITALS: BP 128/79
--- NOTE | 2025-01-23 17:46 | ED.GENMED ---
History of Present Illness
General
Chief Complaint: Crisis Evaluation
Source: patient and significant other
Exam Limitations: none
Time Seen by Provider: 01/23/25 17:04
Nursing documentation reviewed up to this point in time: agreed with
History of Present Illness
History of Present Illness:
24-year-old female presents emergency department wanting detox. She denies any suicidal thoughts or ideation. She was recently at the detox unit at [facility]. She states she was detoxing from heroin cocaine and Suboxone. Crisis saw her in the
emergency department today and she denied any suicidal ideation to them.
Past History
Past History
ED Past Medical History: Asthma (Uses Asthmanex) and Psychiatric (Anxiety Takes Remeron, Abilify, Valium, Gabapentin. Followed by her Psychiatrist.)
ED Past Surgical History: None
Social History
Tobacco: Vaping
Alcohol: None
Drug: Marijuana, Cocaine and Narcotics
Personal:
Living: with family
Employment: Not employed
Review of Systems
Review of Systems
Allergies reviewed?: Yes
All Other Systems: Not applicable
Constitutional: Reports no symptoms
EENT: Reports no symptoms
Respiratory: Reports no symptoms
Cardiac: Reports no symptoms
ABD/GI: Reports no symptoms
: Reports no symptoms
Musculoskeletal: Reports no symptoms
Skin: Reports no symptoms
Neurological: Reports no symptoms
Endocrine: Reports no symptoms
Hematologic/Lymphatic: Reports no symptoms
Psychiatric: Reports no symptoms; Denies depression or suicidal
Phy Exam
Physical Exam
Physical Exam:
Physical Exam
General: no apparent distress, not acutely ill
Neck: supple. no meningeal signs. normal posterior pharynx
Heart: s1/s2 regular rate and rhythm, no murmur. equal radial
pulses.
HEENT: Pupils equal round reactive to light, EOMI
Lungs: no acute respiratory distress. clear bilaterally
Abdomen: normal bowel sounds. not tender. no CVAT
Neuro: alert and oriented. no focal neurological deficits cranial nerves II through XII intact
Skin: no rash
Psychiatric: well kept. interactive and cooperative
Extremities: no edema. no calf tenderness. negative homans. good distal pulses
Course
Orders/Labs/Results
Orders:
Orders
01/23/25 15:36
1:1 Observation - Suicide/ Violent Behavior As Directed
Crisis Consult Urgent
Reason for Consult: detox/self-harm
Vital Signs
Initial and Last Documented VS:
Initial Vital Signs
Temp Pulse Resp BP Pulse Ox
98.4 F 101 20 128/79 96
01/23/25 15:31 01/23/25 15:31 01/23/25 15:31 01/23/25 15:31 01/23/25 15:31
Last Documented Vital Signs
Temp Pulse Resp BP Pulse Ox
98.4 F 101 20 128/79 96
01/23/25 15:31 01/23/25 15:31 01/23/25 15:31 01/23/25 15:31 01/23/25 15:31
MDM/Problems Addressed
Differential Diagnosis Includes:
Drug overdose, withdrawal
MDM/Problems Addressed:
24-year-old female with heroin cocaine and Suboxone abuse. She denies suicidal or homicidal ideation. When offered [facility] evaluation, she declined and wants to leave.
*Pulse Oximetry
Patient hypoxic: no
*Critical Care Note
Total Time (30-74mins, 75-104mins- exclusive of procedures): Not Applicable
Patient Management
Social determinants of health affecting care: Living situation, Substance abuse and Poor outpatient follow-up
Escalation/DeEscalation of care consider admission/obs:
Admit not indicated
ED Attending Note
-
Portions of this chart may have been created with voice recognition software.� Occasional wrong word or��sound alike� substitutions may have occurred due to the inherent limitations of voice recognition software.
Discharge Plan
Departure
Patient Disposition: Home (Routine Discharge)
Date of Disposition: 01/23/25
Time of Disposition: 17:50
Patient with high blood pressure during this ER visit?: Yes
Discharge Problem:
Drug abuse
Instructions: BLOOD PRESSURE, Drug and Alcohol Abuse Information
Prescriptions:
No Action
albuterol sulfate 2.5 MG/3 ML solution for nebulization
2.5 mg inhalation R Q4HPRN PRN (Reason: sob/wheezing)
sertraline 100 MG tablet
100 mg PO DAILY
levonorgestrel-ethinyl estrad [Altavera (28)] 1 EACH tablet
1 ea PO DAILY@1800
gabapentin 300 MG capsule
300 mg PO BID
fluticasone propionate 1 SPRAY spray,suspension
1 spray intranasal DAILY
prednisone 10 MG tablet
10 mg PO .TAPER Qty: 30 0RF
Rx Instructions:
Take 40mg daily x3days, 30mg daily x3days,
20mg daily x3days, 10mg daily x3days.
ondansetron 4 MG tablet,disintegrating
4 mg PO TIDPRN PRN (Reason: nausea) Qty: 10 0RF
gabapentin 400 MG capsule
400 mg PO TID Qty: 90 6RF
ondansetron 4 MG tablet,disintegrating
4 mg PO TIDPRN PRN (Reason: nausea/vomiting) Qty: 10 0RF
prednisone 50 MG tablet
50 mg PO DAILY Qty: 5 0RF
ondansetron 4 MG tablet,disintegrating
4 mg PO TIDPRN PRN (Reason: nausea/vomiting) Qty: 6 0RF
ondansetron 4 mg tablet,disintegrating
4 mg PO Q6H PRN (Reason: nausea and vomiting) Qty: 20 0RF
cephalexin 500 mg capsule
500 mg PO BID 7 Days Qty: 14 0RF
ondansetron HCl 4 mg tablet
4 mg PO Q6H PRN (Reason: nausea and vomiting) Qty: 8 0RF
Referrals:
UNKNOWN - PT NOT,INTERVIEWE [Family Provider] -
Activity Restrictions/Additional Instructions:
Follow-up with [facility] [phone]
Interventions
Interventions:
*Risk Screen - Suicide Last Done: 01/23/25 15:31
*General Assessment Last Done: 01/23/25 15:31
*Neglect/Abuse Screening Last Done: 01/23/25 15:58
*ED COVID-19 Vaccine History Last Done: 01/23/25 15:58
ED-Psychological Assessment Last Done: 01/23/25 15:59
Discharge Date and Time
Print Language: CZECH
== END 2025-01-23 17:57 | disposition home or self-care (01) ==
LOC: EMR 15:28
PROVIDERS: EMERGENCY PHYSICIAN Emergency Medicine
DX: F14.10 Cocaine abuse, uncomplicated (principal); F11.10 Opioid abuse, uncomplicated; F17.290 Nicotine dependence, other tobacco product, uncomplicated
CPT/HCPCS: 99283